=== PATIENT | male | born 1995 | race Two or more races ===

== ENCOUNTER 2025-02-16 08:08 | Outpatient (OUT) | payer OTHER, SELFPAY ==
--- NOTE | 2025-02-16 08:16 | XR_ITS ---
[place] [id number] Patient Name: GABE RIGGS MRN: [id number] date: 1995 Sex: M Assigned Patient Location: [facility] Current Patient Location: [facility] Accession/Order Number: [id number] Exam Date: 02/16/2025 09:20 Report Date: 02/16/2025 09:28 At the request of: BASILIO DREW MD Procedure: XR foot RT min 3V RIGHT ANKLE - 3 views, right foot 3 views CLINICAL HISTORY: Right Foot And Ankle Pain COMPARISON: None FINDINGS: Right ankle: No focal soft tissue abnormality. No acute bony process. Ankle mortise appears intact. Right foot: No focal soft tissue abnormality. No acute bony process is seen. Joint spaces appear maintained. XR/XR foot RT min 3V IMPRESSION: NO ACUTE BONY PROCESS. Impression dictated by: Vipul Cruz Jr., D.O. 02/16/2025 9:28 AM Dictation Location: [place] [address] Electronically authenticated by: [id number] Y Date: 02/16/2025 09:28
--- NOTE | 2025-02-16 08:16 | XR_ITS ---
[place] [id number] Patient Name: GABE RIGGS MRN: [id number] date: 1995 Sex: M Assigned Patient Location: [facility] Current Patient Location: [facility] Accession/Order Number: [id number] Exam Date: 02/16/2025 09:20 Report Date: 02/16/2025 09:28 At the request of: BASILIO DREW MD Procedure: XR foot RT min 3V RIGHT ANKLE - 3 views, right foot 3 views CLINICAL HISTORY: Right Foot And Ankle Pain COMPARISON: None FINDINGS: Right ankle: No focal soft tissue abnormality. No acute bony process. Ankle mortise appears intact. Right foot: No focal soft tissue abnormality. No acute bony process is seen. Joint spaces appear maintained. XR/XR ankle RT min 3V IMPRESSION: NO ACUTE BONY PROCESS. Impression dictated by: Vipul Cruz Jr., D.O. 02/16/2025 9:28 AM Dictation Location: [place] [address] Electronically authenticated by: [id number] Y Date: 02/16/2025 09:28
== END 2025-02-16 08:09 | disposition home or self-care (01) ==
LOC: RAD 08:12
PROVIDERS: Visit Provider Preventive Medicine Preventive Medicine/Occupational Environmental Medicine
DX: M25.571 Pain in right ankle and joints of right foot (principal); M79.671 Pain in right foot
CPT/HCPCS: 73610; 73630